=== PATIENT | female | born 1980 | race African-American/Black ===

== ENCOUNTER 2021-12-14 16:18 | Outpatient (CLI) | payer OTHER ==
[2021-12-14 17:14] LABS: Clarity Cloudy (Clear); Glucose, Urine (Dipstick) Unable to Interpret mg/dL (Negative); Leukocyte Unable to Interpret (Negative); Nitrite Unable to Interpret (Negative); Protein, Urine (Dipstick) Unable to Interpret mg/dl (Neg-Trace); pH, Urine 6.5 (5.0-9.0)
[2021-12-14 17:15] LABS: Bacteria/HPF None Seen HPF (None Seen); Bilirubin Unable to Interpret (Negative); Blood, Urine Unable to Interpret (Negative); Ketone, Urine Unable to Interpret mg/dL (Negative); RBC/HPF Greater than 50 HPF (0-3); Squamous Epithelial 0-3 HPF (0-3); Urobilinogen UNABLE TO INTERPRET mg/dL (Less than 2); WBC/HPF 0-3 HPF (0-3)
[2021-12-15 00:25] LABS: SARS-CoV-2 PCR by NAA Not Detected (NotDetected)
== END 2021-12-14 16:19 | disposition home or self-care (01) ==
LOC: LABBT 16:18
PROVIDERS: ATTEND Urology
DX: Z01.812 Encounter for preprocedural laboratory examination (principal); N20.1 Calculus of ureter; Z20.822 Contact with and (suspected) exposure to COVID-19
CPT/HCPCS: 81001; 87086; U0003; U0005

== ENCOUNTER 2021-12-17 08:56 | Day surgery (SDC) | payer OTHER ==
[2021-12-14 13:54] VITALS: BMI 24.7
[2021-12-17] MEDS ORDERED: Midazolam HCl 2 mg/2 ml Vial ONE ×2 (10:09→10:30)
[2021-12-17] MEDS ORDERED: Iothalamate Meglumine 60% 50 ML VIAL FS ONE (10:26)
[2021-12-17] MEDS ORDERED: Fentanyl 100 MCG/2 ML VIAL ONE (10:30)
[2021-12-17] MEDS ORDERED: Levofloxacin 500 mg/D5W 100 ml Premix Bag ONE (10:35)
[2021-12-17] MEDS ORDERED: Famotidine/PF 20 mg/2ml Vial ONE (10:41)
[2021-12-17] MEDS ORDERED: Ondansetron PF 4 MG/2 ML Vial ONE (10:42)
[2021-12-17] MEDS ORDERED: Dexamethasone 20 MG/5 ML VIAL ONE (10:42)
[2021-12-17] MEDS ORDERED: Rocuronium Bromide 10 MG/ML (10ML VIAL) ONE (10:42)
[2021-12-17] MEDS ORDERED: PROPOFOL 200 MG/20 ML VIAL ONE (10:42)
[2021-12-17] MEDS ORDERED: Lidocaine 1% PF 5 ML VIAL ONE (10:42)
[2021-12-17] MEDS ORDERED: Succinylcholine 200 MG/10 ml SYRINGE FS ONE (10:42)
[2021-12-17] MEDS ORDERED: Metoclopramide HCl 10 MG/2 ML VIAL ONE (10:42)
[2021-12-23 11:13] LABS: CA Oxalate Dihydrate 30 % (.); CA Oxalate Monohydrate 40 % (.); Color Tan (.); Stone Weight 42 mg (.)
== END 2021-12-17 12:50 | disposition home or self-care (01) ==
LOC: SDC 08:56
PROVIDERS: ATTEND Urology
PROC: 0TC68ZZ Extirpation of Matter from Right Ureter, Via Natural or Artificial Opening Endoscopic (ICD-10-PCS; principal; 2021-12-17)
PROC: 0T768DZ Dilation of Right Ureter with Intraluminal Device, Via Natural or Artificial Opening Endoscopic (ICD-10-PCS; principal; 2021-12-17)
DX: N20.1 Calculus of ureter (principal)
CPT/HCPCS: 74420; 82365; 88300; C2617; J1100; J1956; J2250; J2405; J2704; J2765; J3010; Q9961-U8; S0028